=== PATIENT | male | born 1980 | race American Indian/Alaskan Native ===

== ENCOUNTER 2016-10-04 14:41 | Inpatient (IN) | payer OTHER ==
--- NOTE | 2016-10-04 16:14 | Emergency Department Report ---
Addendum entered and electronically signed by YUSUF WILDE PA 10/04/16 19:10 : Blank Doc - Documentation Documentation: Charged nurse notified the patient's pulse ox is 95% and needs supplemental oxygen. I also informed her of that patient will needs to come back to main ED immediately. Patient remained short of breath after respiratory treatment. Albuterol nebulizer ordered and CT angiogram of the chest ordered. Patient notified as additional treatment plan. O2 sat 97% on 2 L of oxygen. Original Note: Chief Complaint: Dyspnea/Respdistress Stated Complaint: ASTHMA/VOMITING/SOB/CHILLS Time Seen by Provider: 10/04/16 16:12 - HPI History of Present Illness: Patient here reports difficulty breathing and was diagnosed with pneumonia in . He said he was diagnosed at [facility]. He reports that he is having fever and chills. Patient is a positive smoker. Patient reports that he has asthma and he uses albuterol nebulizer and inhaler. O2 sat is coughing and is having some tightness in his chest that he usually gets with his asthma but he feels like he has pneumonia. Patient reports nausea. - ROS Review of Systems: All systems are negative unless stated in HPI above. - Exam Vital Signs: Vital Signs 10/04/16 15:12 Temperature 99.0 F Pulse Rate 124 H Respiratory 24 Rate Blood Pressure 139/80 O2 Sat by Pulse 96 Oximetry Physical Exam: General: This is a 35-year-old male well-nourished well-developed in no acute distress. Lungs: Dry cough, mild increased work of breathing. No wheezing. CV: Tachycardic at 124, regular rhythm. S1-S2 MSE screening note: Focused history and physical exam performed. Due to findings the following was ordered:See [facility] ED Medical Decision Making - Medical Decision Making Medical decision making: Patient seen by provider in triage area. Appropriate protocol activated and patient to main ED to be seen by physician. ED Disposition for MSE Condition: Stable
[2016-10-04] MEDS ORDERED: XOPENEX IH ONE ×2 (16:15→21:48)
[2016-10-04] MEDS: ATROVENT IH ONE ×2 (16:28→19:44)
[2016-10-04 16:38] LABS: Basophils % (Auto) 0.4 % (0.0-1.8); Eosinophils % (Auto) 0.5 % (0.0-4.3); Hematocrit 46.4 % (35.5-45.6); Hemoglobin 15.6 gm/dl (11.8-15.2); Mean Corpuscular HGB Conc 34 % (32-34); Mean Corpuscular Hemoglobin 27 pg (28-32); Mean Corpuscular Volume 81 fl (84-94); Platelet Count 215 K/mm3 (140-440); Red Blood Count 5.75 M/mm3 (3.65-5.03); Red Cell Distribution Width 14.8 % (13.2-15.2); White Blood Count 12.3 K/mm3 (4.5-11.0)
[2016-10-04 16:58] LABS: Blood Urea Nitrogen 18 mg/dL (9-20); Calcium 9.2 mg/dL (8.4-10.2); Carbon Dioxide 23 mmol/L (22-30); Chloride 99.2 mmol/L (98-107); Glucose 93 mg/dL (75-100); Potassium 4.3 mmol/L (3.6-5.0); Sodium 137 mmol/L (137-145)
[2016-10-04 17:19] LABS: Anion Gap 19 mmol/L
[2016-10-04] MEDS ORDERED: PROVENTIL IH ONE ×2 (19:06→19:37)
[2016-10-04 19:33] LABS: INR 1.05 (0.87-1.13)
[2016-10-04] MEDS ORDERED: NACL ONE (19:35)
[2016-10-04] MEDS ORDERED: ATROVENT IH ONE ×2 (19:37)
[2016-10-04 19:41] LABS: Creatine Kinase MB 1.3 ng/mL (0.0-4.0)
[2016-10-04] MEDS ORDERED: MAGNESIUM SULFATE 2GM/50ML 50 ML IV ONE (19:41)
--- NOTE | 2016-10-04 19:42 | Emergency Department Report ---
HPI - General Chief Complaint: Dyspnea/Respdistress Time Seen by Provider: 10/04/16 16:12 - HPI HPI: Room 22 The patient is a 35-year-old male presenting with a chief complaint of chest pain and shortness of breath. The patient states yesterday he developed symptoms similar to his previous bout of pneumonia which included anterior chest pain that feels as though something is staying on his chest associated with shortness of breath and a cough productive of green sputum. Patient does admit to nausea vomiting. Patient gives his pain a score of 6/10. The patient denies any recent flights/car trips Location: Chest Duration: Constant since yesterday Quality: Pressure Severity: 6/10 Modifying factors: [see above] Context: [see above] Mode of transportation: [not driving] ED Past Medical Hx - Past Medical History Previous Medical History?: No Hx Asthma: Yes - Surgical History Past Surgical History?: Yes Additional Surgical History: Hernia repair - Family History Family history: no significant - Social History Smoking Status: Current Every Day Smoker Substance Use Type: Alcohol (occasional) - Medications Home Medications: Home Medications Medication Instructions Recorded Confirmed Last Taken Type ALBUTEROL Inhaler 2 puff IH Q4H 07/08/16 07/08/16 Unknown History ED Review of Systems ROS: Stated complaint: ASTHMA/VOMITING/SOB/CHILLS Other details as noted in HPI Comment: All other systems reviewed and negative Constitutional: denies: chills, fever Eyes: denies: eye pain, eye discharge, vision change ENT: denies: ear pain, throat pain Respiratory: cough, shortness of breath, wheezing Cardiovascular: denies: palpitations Endocrine: no symptoms reported Gastrointestinal: nausea, vomiting Genitourinary: denies: urgency, dysuria Musculoskeletal: denies: back pain, joint swelling, arthralgia Skin: denies: rash, lesions Neurological: denies: headache, weakness, paresthesias Psychiatric: denies: anxiety, depression Hematological/Lymphatic: denies: easy bleeding, easy bruising Physical Exam - Physical Exam Vital Signs: Vital Signs 10/04/16 15:12 Temperature 99.0 F Pulse Rate 124 H Respiratory 24 Rate Blood Pressure 139/80 O2 Sat by Pulse 96 Oximetry Physical Exam: GENERAL: The patient is well-developed well-nourished male lying on stretcher appearing in mild discomfort. [] HEENT: Normocephalic. Atraumatic. Extraocular motions are intact. Patient has moist mucous membranes. NECK: Supple. Trachea midline CHEST/LUNGS: Diminished breath sounds throughout. HEART/CARDIOVASCULAR: Regular. There is tachycardia. There is no gallop rub or murmur. ABDOMEN: Abdomen is soft, nontender. Patient has normal bowel sounds. There is no abdominal distention. SKIN: There is no rash. There is no edema. There is no diaphoresis. NEURO: The patient is awake, alert, and oriented. The patient is cooperative. The patient has normal speech MUSCULOSKELETAL: There is no evidence of acute injury. ED Course Vital Signs 10/04/16 15:12 Temperature 99.0 F Pulse Rate 124 H Respiratory 24 Rate Blood Pressure 139/80 O2 Sat by Pulse 96 Oximetry ED Medical Decision Making - Lab Data Result diagrams: 10/04/16 16:27 10/04/16 16:27 Laboratory Tests 10/04/16 10/04/16 10/04/16 16:27 16:27 16:27 WBC 12.3 H RBC 5.75 H Hgb 15.6 H Hct 46.4 H MCV 81 L MCH 27 L MCHC 34 RDW 14.8 Plt Count 215 Lymph % (Auto) 3.6 L Crawford % (Auto) 12.3 H Eos % (Auto) 0.5 Baso % (Auto) 0.4 Lymph # 0.4 L Crawford # 1.5 H Eos # 0.1 Baso # 0.1 Seg Neutrophils % 83.2 H Seg Neutrophils # 10.2 H PT INR APTT Sodium 137 Potassium 4.3 Chloride 99.2 Carbon Dioxide 23 Anion Gap 19 BUN 18 Creatinine 1.5 Estimated GFR > 60 BUN/Creatinine Ratio 12.00 Glucose 93 Lactic Acid 1.5 Calcium 9.2 Total Creatine Kinase CK-MB (CK-2) CK-MB (CK-2) Rel Index Troponin T NT-Pro-B Natriuret Pep 10/04/16 10/04/16 19:10 19:10 WBC RBC Hgb Hct MCV MCH MCHC RDW Plt Count Lymph % (Auto) Crawford % (Auto) Eos % (Auto) Baso % (Auto) Lymph # Crawford # Eos # Baso # Seg Neutrophils % Seg Neutrophils # PT 13.6 INR 1.05 APTT 35.0 Sodium Potassium Chloride Carbon Dioxide Anion Gap BUN Creatinine Estimated GFR BUN/Creatinine Ratio Glucose Lactic Acid Calcium Total Creatine Kinase 212 H CK-MB (CK-2) 1.3 CK-MB (CK-2) Rel Index 0.6 Troponin T < 0.010 NT-Pro-B Natriuret Pep 5.73 - EKG Data -: EKG Interpreted by Me EKG shows normal: sinus rhythm Rate: normal - EKG Data When compared to previous EKG there are: previous EKG unavailable Interpretation: other (no ischemic changes seen) - Radiology Data Radiology results: report reviewed (CT chest), image reviewed (chest x-ray, CT chest) interpreted by me: Chest x-ray-no focal infiltrates, no pneumothorax CT chest (read by radiologist)-no evidence for pulmonary embolism. Nonspecific noncalcified nodule in the left upper lobe laterally. Given the size, follow- up CT in 1 year is recommended unless the patient is at high risk patient. In the latter instance, follow-up CT in 6 and 12 months is warranted - Differential Diagnosis acute asthma exacerbation, pneumonia, pneumothorax, PE Critical care attestation.: If time is entered above; I have spent that time in minutes in the direct care of this critically ill patient, excluding procedure time. ED Disposition Clinical Impression: Shortness of breath, Acute asthma exacerbation Disposition: OP ADMITTED IP TO THIS HOSP Is pt being admited?: Yes Does the pt Need Aspirin: Yes Condition: Fair Time of Disposition: 21:48 (hospitalist notified)
[2016-10-04 19:43] LABS: Creatine Kinase 212 units/L (55-170)
--- NOTE | 2016-10-04 20:37 | Cat Scan Report ---
FINAL REPORT EXAM: CT ANGIO CHEST HISTORY: SOB TECHNIQUE: Enhanced CT of the chest at 2.5 mm axial intervals following a pulmonary embolism protocol. Coronal and sagittal imaging were also obtained. Contrast: 100 ml of Omnipaque 350 given IV. PRIORS: CXR 10/04/2016 FINDINGS: There is no evidence for pulmonary embolism in the main pulmonary artery, right and left pulmonary arteries or their major distributions. However, CT does not exclude distal pulmonary emboli. There is a nonspecific subpleural 6 mm nodule in the left upper lobe (coronal image 40, axial image 57). Otherwise, the lung parenchyma are expanded and clear with no evidence for parenchymal infiltrates, congestion, or pleural effusion. There is no evidence for mediastinal, hilar, or axillary adenopathy. Cardiovascular structures are within normal limits. Images through the lung bases include the upper abdomen which show no abnormalities of the visualized abdominal viscera. Bony structures demonstrate no focal abnormalities. IMPRESSION: 1. no evidence for pulmonary embolism. 2. nonspecific uncalcified nodule in the left upper lobe laterally. Given the size, follow-up CT in 1 years recommended unless the patient is a high-risk patient (history of smoking or primary neoplasm). In the latter instance, follow-up CT in 6 and 12 months is warranted.
--- NOTE | 2016-10-04 20:47 | XRay Report ---
FINAL REPORT EXAM: XR CHEST ROUTINE 2V HISTORY: Shortness of breath TECHNIQUE: PA and lateral views of the chest PRIORS: CT chest 10/04/2016 FINDINGS: Lines, tubes, and devices: N/A Lungs and pleura: Trachea is normal in position. Lungs are clear of infiltrate, pleural effusion, vascular congestion, or pneumothorax. The tiny 6 mm left upper lobe nodule seen on recent CT is not well-visualized by x-ray. This should be followed with CT. Cardiomediastinal silhouette: Cardiac and mediastinal silhouettes are unremarkable. Other: Bony structures are intact. IMPRESSION: No acute cardiopulmonary process seen.
--- NOTE | 2016-10-04 21:50 | History and Physical Report ---
History of Present Illness Chief complaint: shortness of breath History of present illness: 35 YO Male with Asthma, Nicotine Dependence presents to ED for evaluation. Pt states that he experienced shortness of breath over the past day. The patient states symptoms began yesterday after smoking cigarettes. Pt states that symptoms are accompanied with dry cough, productive of green sputum, and soreness in his chest after coughing. Pt denies fever, chills, CP, palpitations , NVD, recent ill contacts. Past History Past Medical History: other (asthma) Past Surgical History: hernia repair Social history: single, smoking. denies: alcohol abuse, prescription drug abuse Family history: hypertension Medications and Allergies Allergies Allergy/AdvReac Type Severity Reaction Status Date / Time No Known Allergies Allergy Unverified 07/08/16 00:25 Home Medications Medication Instructions Recorded Confirmed Last Taken Type ALBUTEROL Inhaler 2 puff IH Q4H PRN 07/08/16 10/04/16 1 Day Ago History 2 Review of Systems All systems: negative Respiratory: cough, shortness of breath Exam - Constitutional Vitals: Temp Pulse Resp BP Pulse Ox 99.9 F H 121 H 16 142/79 100 10/04/16 19:15 10/04/16 20:56 10/04/16 20:56 10/04/16 20:56 10/04/16 20:56 General appearance: Present: no acute distress, well-nourished - EENT Eyes: Present: PERRL ENT: hearing intact, clear oral mucosa - Neck Neck: Present: supple, normal ROM - Respiratory Respiratory effort: normal Respiratory: bilateral: CTA - Cardiovascular Heart Sounds: Present: S1 & S2. Absent: rub, click - Extremities Extremities: pulses symmetrical, No edema Peripheral Pulses: within normal limits - Abdominal General gastrointestinal: Present: soft, non-tender, non-distended, normal bowel sounds Male genitourinary: Present: normal - Integumentary Integumentary: Present: clear, warm, dry - Musculoskeletal Musculoskeletal: gait normal, strength equal bilaterally - Psychiatric Psychiatric: appropriate mood/affect, intact judgment & insight - Neurologic Neurologic: CNII-XII intact, moves all extremities Results - Labs CBC & Chem 7: 10/05/16 05:31 10/04/16 16:27 Labs: Abnormal lab results 10/04/16 10/04/16 Range/Units 16:27 19:10 WBC 12.3 H (4.5-11.0) K/mm3 RBC 5.75 H (3.65-5.03) M/mm3 Hgb 15.6 H (11.8-15.2) gm/dl Hct 46.4 H (35.5-45.6) % MCV 81 L (84-94) fl MCH 27 L (28-32) pg Lymph % (Auto) 3.6 L (13.4-35.0) % [facility] % (Auto) 12.3 H (0.0-7.3) % Lymph # 0.4 L (1.2-5.4) K/mm3 [facility] [place] # 1.5 H (0.0-0.8) K/mm3 Seg Neutrophils % 83.2 H (40.0-70.0) % Seg Neutrophils # 10.2 H (1.8-7.7) K/mm3 Total Creatine Kinase 212 H (55-170) units/L Assessment and Plan - Patient Problems (1) Acute asthma exacerbation Current Visit: Yes Status: Acute Plan to address problem: Asthma Exacerbation Protocol: Iv abx, steroids, nebulizer, supplemental oxygen, education regarding asthma triggers. (2) Nicotine dependence Current Visit: Yes Status: Acute Plan to address problem: Pt counseled (3) DVT prophylaxis Current Visit: Yes Status: Acute
[2016-10-04] MEDS ORDERED: TYLENOL PO PRN (21:51)
[2016-10-04] MEDS ORDERED: ZITHROMAX 500 MG in NACL 0.9% 250ML 250 ML IV ONE (21:52)
[2016-10-04] MEDS ORDERED: DUONEB 0.5 MG-3 MG/3 ML SOLN IH PRN (21:53)
[2016-10-04] MEDS ORDERED: NACL 0.9% 1000 ML 1,000 ML ONE (22:25)
[2016-10-05] MEDS: PROVENTIL IH PRN ×2 (05:35→10:17)
[2016-10-05 07:03] LABS: Hematocrit 44.1 % (35.5-45.6); Hemoglobin 14.3 gm/dl (11.8-15.2); Mean Corpuscular HGB Conc 32 % (32-34); Mean Corpuscular Hemoglobin 26 pg (28-32); Mean Corpuscular Volume 81 fl (84-94); Platelet Count 212 K/mm3 (140-440); Red Blood Count 5.48 M/mm3 (3.65-5.03); White Blood Count 11.2 K/mm3 (4.5-11.0)
[2016-10-05 09:10] LABS: Anisocytosis 1+; Basophils % (Manual) 0 % (0.0-1.8); Blastocytes % (Manual) 0 %; Eosinophils % (Manual) 0 % (0.0-4.3)
[2016-10-05 09:11] LABS: Diff Status Complete; Platelet Estimate Appe
[2016-10-05] MEDS: DUONEB 0.5 MG-3 MG/3 ML SOLN IH SCH ×3 (14:32→20:03)
[2016-10-05] MEDS: ZITHROMAX PO SCH (16:35)
[2016-10-05] MEDS ORDERED: ATROVENT IH SCH (20:00)
--- NOTE | 2016-10-05 20:09 | Progress Note ---
Assessment and Plan Assessment and plan: 1. Asthma exacerbation Start antibiotic along with IV corticosteroids, inhaled bronchodilators and supplemental oxygen 2. Tobacco use Counseled regarding importance of quitting (10 minutes) 3. Lung nodule Needs repeat CT chest in 6-12 months 4. DVT prophylaxis Lovenox History Interval history: c/o SOB, wheezing, difficulty breathing, chest tightness Hospitalist Physical - Constitutional Vitals: Temp Pulse Resp BP Pulse Ox 99.5 F 118 H 14 119/78 100 10/05/16 14:59 10/05/16 14:59 10/05/16 14:59 10/05/16 14:59 10/05/16 14:59 General appearance: Present: no acute distress, well-nourished - EENT Eyes: Present: PERRL, EOM intact. Absent: scleral icterus, conjunctival injection - Neck Neck: Present: supple, normal ROM. Absent: masses or JVD - Respiratory Respiratory effort: labored Respiratory: bilateral: diminished, wheezing, negative: rales, rhonchi - Cardiovascular Rhythm: other (tachycardic) Heart Sounds: Present: S1 & S2. Absent: systolic murmur - Extremities Extremities: no ischemia - Abdominal General gastrointestinal: soft, non-tender, non-distended, normal bowel sounds - Integumentary Integumentary: Present: warm, dry. Absent: jaundice, rash - Psychiatric Psychiatric: cooperative - Neurologic Neurologic: CNII-XII intact, no focal deficits Results - Labs CBC & Chem 7: 10/05/16 05:31 10/04/16 16:27 Labs: Laboratory Last Values WBC 11.2 K/mm3 (4.5-11.0) H 10/05/16 05:31 RBC 5.48 M/mm3 (3.65-5.03) H 10/05/16 05:31 Hgb 14.3 gm/dl (11.8-15.2) 10/05/16 05:31 Hct 44.1 % (35.5-45.6) 10/05/16 05:31 MCV 81 fl (84-94) L 10/05/16 05:31 MCH 26 pg (28-32) L 10/05/16 05:31 MCHC 32 % (32-34) 10/05/16 05:31 RDW 15.0 % (13.2-15.2) 10/05/16 05:31 Plt Count 212 K/mm3 (140-440) 10/05/16 05:31 Lymph % (Auto) 3.6 % (13.4-35.0) L 10/04/16 16:27 Forrest % (Auto) 12.3 % (0.0-7.3) H 10/04/16 16:27 Eos % (Auto) 0.5 % (0.0-4.3) 10/04/16 16:27 Baso % (Auto) 0.4 % (0.0-1.8) 10/04/16 16:27 Lymph # 0.4 K/mm3 (1.2-5.4) L 10/04/16 16:27 Forrest # 1.5 K/mm3 (0.0-0.8) H 10/04/16 16:27 Eos # 0.1 K/mm3 (0.0-0.4) 10/04/16 16:27 Baso # 0.1 K/mm3 (0.0-0.1) 10/04/16 16:27 Add Manual Diff Complete 10/05/16 05:31 Total Counted 100 10/05/16 05:31 Seg Neutrophils % Business Systems Administrator 10/05/16 05:31 Seg Neuts % (Manual) 68.0 % (40.0-70.0) 10/05/16 05:31 Band Neutrophils % 12.0 % 10/05/16 05:31 Lymphocytes % (Manual) 11.0 % (13.4-35.0) L 10/05/16 05:31 Reactive Lymphs % (Man) 0 % 10/05/16 05:31 Monocytes % (Manual) 9.0 % (0.0-7.3) H 10/05/16 05:31 Eosinophils % (Manual) 0 % (0.0-4.3) 10/05/16 05:31 Basophils % (Manual) 0 % (0.0-1.8) 10/05/16 05:31 Metamyelocytes % 0 % 10/05/16 05:31 Myelocytes % 0 % 10/05/16 05:31 Promyelocytes % 0 % 10/05/16 05:31 Blast Cells % 0 % 10/05/16 05:31 Nucleated RBC % Not Reportable 10/05/16 05:31 Seg Neutrophils # 10.2 K/mm3 (1.8-7.7) H 10/04/16 16:27 Seg Neutrophils # Man 7.6 K/mm3 (1.8-7.7) 10/05/16 05:31 Band Neutrophils # 1.3 K/mm3 10/05/16 05:31 Lymphocytes # (Manual) 1.2 K/mm3 (1.2-5.4) 10/05/16 05:31 Abs React Lymphs (Man) 0.0 K/mm3 10/05/16 05:31 Monocytes # (Manual) 1.0 K/mm3 (0.0-0.8) H 10/05/16 05:31 Eosinophils # (Manual) 0.0 K/mm3 (0.0-0.4) 10/05/16 05:31 Basophils # (Manual) 0.0 K/mm3 (0.0-0.1) 10/05/16 05:31 Metamyelocytes # 0.0 K/mm3 10/05/16 05:31 Myelocytes # 0.0 K/mm3 10/05/16 05:31 Promyelocytes # 0.0 K/mm3 10/05/16 05:31 Blast Cells # 0.0 K/mm3 10/05/16 05:31 WBC Morphology Not Reportable 10/05/16 05:31 Hypersegmented Neuts Not Reportable 10/05/16 05:31 Hyposegmented Neuts Not Reportable 10/05/16 05:31 Hypogranular Neuts Not Reportable 10/05/16 05:31 Smudge Cells Not Reportable 10/05/16 05:31 Toxic Granulation Not Reportable 10/05/16 05:31 Toxic Vacuolation Not Reportable 10/05/16 05:31 Dohle Bodies Not Reportable 10/05/16 05:31 Pelger-Huet Anomaly Not Reportable 10/05/16 05:31 Juju Rods Not Reportable 10/05/16 05:31 Platelet Estimate Appe 10/05/16 05:31 Clumped Platelets Not Reportable 10/05/16 05:31 Plt Clumps, EDTA Not Reportable 10/05/16 05:31 Large Platelets Not Reportable 10/05/16 05:31 Giant Platelets Not Reportable 10/05/16 05:31 Platelet Satelliting Not Reportable 10/05/16 05:31 Plt Morphology Comment Not Reportable 10/05/16 05:31 RBC Morphology Not Reportable 10/05/16 05:31 Dimorphic RBCs Not Reportable 10/05/16 05:31 Polychromasia Not Reportable 10/05/16 05:31 Hypochromasia Not Reportable 10/05/16 05:31 Poikilocytosis Not Reportable 10/05/16 05:31 Anisocytosis 1+ 10/05/16 05:31 Microcytosis Not Reportable 10/05/16 05:31 Macrocytosis Not Reportable 10/05/16 05:31 Spherocytes Not Reportable 10/05/16 05:31 Pappenheimer Bodies Not Reportable 10/05/16 05:31 Sickle Cells Not Reportable 10/05/16 05:31 Target Cells Not Reportable 10/05/16 05:31 Tear Drop Cells Not Reportable 10/05/16 05:31 Ovalocytes Not Reportable 10/05/16 05:31 Helmet Cells Not Reportable 10/05/16 05:31 [place] Bodies Not Reportable 10/05/16 05:31 [place] Rings Not Reportable 10/05/16 05:31 [place] Cells Not Reportable 10/05/16 05:31 Bite Cells Not Reportable 10/05/16 05:31 Crenated Cell Not Reportable 10/05/16 05:31 Elliptocytes Not Reportable 10/05/16 05:31 Acanthocytes (Spur) Not Reportable 10/05/16 05:31 Rouleaux Not Reportable 10/05/16 05:31 Hemoglobin C Crystals Not Reportable 10/05/16 05:31 Schistocytes Not Reportable 10/05/16 05:31 Malaria parasites Not Reportable 10/05/16 05:31 Drew Bodies Not Reportable 10/05/16 05:31 Hem Pathologist Commnt No 10/05/16 05:31 PT 13.6 Sec. (12.2-14.9) 10/04/16 19:10 INR 1.05 (0.87-1.13) 10/04/16 19:10 APTT 35.0 Sec. (24.2-36.6) 10/04/16 19:10 Sodium 137 mmol/L (137-145) 10/04/16 16:27 Potassium 4.3 mmol/L (3.6-5.0) 10/04/16 16:27 Chloride 99.2 mmol/L (98-107) 10/04/16 16:27 Carbon Dioxide 23 mmol/L (22-30) 10/04/16 16:27 Anion Gap 19 mmol/L 10/04/16 16:27 BUN 18 mg/dL (9-20) 10/04/16 16:27 Creatinine 1.5 mg/dL (0.8-1.5) 10/04/16 16:27 Estimated GFR > 60 ml/min 10/04/16 16:27 BUN/Creatinine Ratio 12.00 % 10/04/16 16:27 Glucose 93 mg/dL (75-100) 10/04/16 16:27 Lactic Acid 1.5 mmol/L (0.7-2.0) 10/04/16 16:27 Calcium 9.2 mg/dL (8.4-10.2) 10/04/16 16:27 Total Creatine Kinase 212 units/L (55-170) H 10/04/16 19:10 CK-MB (CK-2) 1.3 ng/mL (0.0-4.0) 10/04/16 19:10 CK-MB (CK-2) Rel Index 0.6 (0-4) 10/04/16 19:10 Troponin T < 0.010 ng/mL (0.00-0.029) 10/04/16 19:10 NT-Pro-B Natriuret Pep 5.73 pg/mL (0-450) 10/04/16 19:10 - Imaging and Cardiology Chest x-ray: image reviewed (no acute findings) CT scan - chest: report reviewed (no PE, 6 mm subpleural nodule left upper lung)
[2016-10-05] MEDS: LOVENOX SUB-Q SCH (22:47)
--- NOTE | 2016-10-05 23:41 | Admit Criteria Form ---
Admission Criteria Documentation: ASTHMA Clinical Indications for Admission to Inpatient Care (Place 'X' for any and all applicable criteria): Admission is indicated for ANY ONE of the following (1)(2)(3)(4)(5): [ ]I. Absent or markedly diminished breath sounds (silent chest) [ ]II. Oxygen saturation < 92% [ ]III. PaCO2 = / > 42 mm Hg (5.6 kPa) [ ]IV. Peak expiratory flow rate < 40% of predicted or personal best after treatment. [ ]V. Peak expiratory flow rate < 33% of predicted or personal before after treatment [ ]. Change in mental status [ ]VII. Ventilatory support required [ ]VIII. PaO2 < 60 mm Hg (8.0 kPa) [ ]IX. Cyanosis [ ]X. Cardiac dysrhythmia (e.g., bradycardia) [ ]XI. Hemodynamic instability [ ]XII. Radiographic evidence of complication requiring inpatient treatment (e.g., pneumonia, pneumothorax) [ X]XIII. Inpatient admission required rather than observation care (also use Asthma: Observation Care guideline as appropriate) because of ANY ONE of the following: [ X]a) Respiratory finding that is severe or persistent (eg, dyspnea, tachypnea, accessory muscle use) [ ]b) Airflow measurements less than 60% of predicted or personal best that persist (e.g., over 24 hours) or worsen despite treatments [ ]c) Supplemental oxygen or respiratory treatments for over 24 hours that are performable only in acute inpatient setting [ ]d) Other condition, treatment or monitoring requiring inpatient admission. Extended stay beyond goal length of stay may be needed for (26)(27)(28): [ ]a) Severe respiratory failure (23) (29) (30) [ ]b) Secondary causes and complications (25) [ ]c) Status asthmaticus [ ]d) Chronic obstructive asthma [ ]e) Older patients (29) [ ]f) Slow resolution [ ]g) Clinically significant exacerbation of comorbidities (eg, víctor. heart failure, atrial fibrillation) The original [facility] content created by [employer] has been revised. The portions of the content which have been revised are identified through the use of italic text or in bold, and [email or web address] has neither reviewed nor approved the modified material. All other unmodified content is copyright [employer] Please see references footnoted in the original [facility] edition 2016 Admission Criteria Met: Yes
[2016-10-06] MEDS: DUONEB 0.5 MG-3 MG/3 ML SOLN IH SCH ×3 (07:27→20:16)
[2016-10-06] MEDS: ZITHROMAX PO SCH (09:44)
[2016-10-06] MEDS ORDERED: PNEUMOVAX 23 IM ONE (12:00)
[2016-10-06] MEDS ORDERED: FLUARIX QUAD 2016-2017(36 MOS+) IM ONE (12:00)
--- NOTE | 2016-10-06 18:26 | Progress Note ---
Assessment and Plan Assessment and plan: 1. Asthma exacerbation Started on antibiotic along with IV corticosteroids, inhaled bronchodilators and supplemental oxygen No significant improvement Add mucinex as he associated productive cough 2. Tobacco use Counseled regarding importance of quitting (10 minutes) 3. Lung nodule Needs repeat CT chest in 6-12 months 4. DVT prophylaxis Lovenox History Interval history: still c/o SOB and wheezing, associated with productive cough Hospitalist Physical - Constitutional Vitals: Temp Pulse Resp BP Pulse Ox 98.1 F 117 H 20 120/66 94 10/06/16 08:00 10/06/16 13:15 10/06/16 13:15 10/06/16 08:00 10/06/16 09:50 General appearance: Present: no acute distress, well-nourished - EENT Eyes: Present: PERRL, EOM intact. Absent: scleral icterus, conjunctival injection - Neck Neck: Present: supple, normal ROM. Absent: masses or JVD - Respiratory Respiratory effort: normal Respiratory: bilateral: diminished, wheezing, negative: rales - Cardiovascular Rhythm: other (tachycardic) Heart Sounds: Present: S1 & S2. Absent: systolic murmur - Extremities Extremities: no ischemia - Abdominal General gastrointestinal: soft, non-tender, non-distended, normal bowel sounds - Psychiatric Psychiatric: cooperative - Neurologic Neurologic: CNII-XII intact, no focal deficits Results - Labs CBC & Chem 7: 10/05/16 05:31 10/04/16 16:27 Labs: Laboratory Last Values WBC 11.2 K/mm3 (4.5-11.0) H 10/05/16 05:31 RBC 5.48 M/mm3 (3.65-5.03) H 10/05/16 05:31 Hgb 14.3 gm/dl (11.8-15.2) 10/05/16 05:31 Hct 44.1 % (35.5-45.6) 10/05/16 05:31 MCV 81 fl (84-94) L 10/05/16 05:31 MCH 26 pg (28-32) L 10/05/16 05:31 MCHC 32 % (32-34) 10/05/16 05:31 RDW 15.0 % (13.2-15.2) 10/05/16 05:31 Plt Count 212 K/mm3 (140-440) 10/05/16 05:31 Lymph % (Auto) 3.6 % (13.4-35.0) L 10/04/16 16:27 [place] % (Auto) 12.3 % (0.0-7.3) H 10/04/16 16:27 Eos % (Auto) 0.5 % (0.0-4.3) 10/04/16 16:27 Baso % (Auto) 0.4 % (0.0-1.8) 10/04/16 16:27 Lymph # 0.4 K/mm3 (1.2-5.4) L 10/04/16 16:27 [place] # 1.5 K/mm3 (0.0-0.8) H 10/04/16 16:27 Eos # 0.1 K/mm3 (0.0-0.4) 10/04/16 16:27 Baso # 0.1 K/mm3 (0.0-0.1) 10/04/16 16:27 Add Manual Diff Complete 10/05/16 05:31 Total Counted 100 10/05/16 05:31 Seg Neutrophils % Recreational Therapy Technician 10/05/16 05:31 Seg Neuts % (Manual) 68.0 % (40.0-70.0) 10/05/16 05:31 Band Neutrophils % 12.0 % 10/05/16 05:31 Lymphocytes % (Manual) 11.0 % (13.4-35.0) L 10/05/16 05:31 Reactive Lymphs % (Man) 0 % 10/05/16 05:31 Monocytes % (Manual) 9.0 % (0.0-7.3) H 10/05/16 05:31 Eosinophils % (Manual) 0 % (0.0-4.3) 10/05/16 05:31 Basophils % (Manual) 0 % (0.0-1.8) 10/05/16 05:31 Metamyelocytes % 0 % 10/05/16 05:31 Myelocytes % 0 % 10/05/16 05:31 Promyelocytes % 0 % 10/05/16 05:31 Blast Cells % 0 % 10/05/16 05:31 Nucleated RBC % Not Reportable 10/05/16 05:31 Seg Neutrophils # 10.2 K/mm3 (1.8-7.7) H 10/04/16 16:27 Seg Neutrophils # Man 7.6 K/mm3 (1.8-7.7) 10/05/16 05:31 Band Neutrophils # 1.3 K/mm3 10/05/16 05:31 Lymphocytes # (Manual) 1.2 K/mm3 (1.2-5.4) 10/05/16 05:31 Abs React Lymphs (Man) 0.0 K/mm3 10/05/16 05:31 Monocytes # (Manual) 1.0 K/mm3 (0.0-0.8) H 10/05/16 05:31 Eosinophils # (Manual) 0.0 K/mm3 (0.0-0.4) 10/05/16 05:31 Basophils # (Manual) 0.0 K/mm3 (0.0-0.1) 10/05/16 05:31 Metamyelocytes # 0.0 K/mm3 10/05/16 05:31 Myelocytes # 0.0 K/mm3 10/05/16 05:31 Promyelocytes # 0.0 K/mm3 10/05/16 05:31 Blast Cells # 0.0 K/mm3 10/05/16 05:31 WBC Morphology Not Reportable 10/05/16 05:31 Hypersegmented Neuts Not Reportable 10/05/16 05:31 Hyposegmented Neuts Not Reportable 10/05/16 05:31 Hypogranular Neuts Not Reportable 10/05/16 05:31 Smudge Cells Not Reportable 10/05/16 05:31 Toxic Granulation Not Reportable 10/05/16 05:31 Toxic Vacuolation Not Reportable 10/05/16 05:31 Dohle Bodies Not Reportable 10/05/16 05:31 Pelger-Huet Anomaly Not Reportable 10/05/16 05:31 [place] Rods Not Reportable 10/05/16 05:31 Platelet Estimate Appe 10/05/16 05:31 Clumped Platelets Not Reportable 10/05/16 05:31 Plt Clumps, EDTA Not Reportable 10/05/16 05:31 Large Platelets Not Reportable 10/05/16 05:31 Giant Platelets Not Reportable 10/05/16 05:31 Platelet Satelliting Not Reportable 10/05/16 05:31 Plt Morphology Comment Not Reportable 10/05/16 05:31 RBC Morphology Not Reportable 10/05/16 05:31 Dimorphic RBCs Not Reportable 10/05/16 05:31 Polychromasia Not Reportable 10/05/16 05:31 Hypochromasia Not Reportable 10/05/16 05:31 Poikilocytosis Not Reportable 10/05/16 05:31 Anisocytosis 1+ 10/05/16 05:31 Microcytosis Not Reportable 10/05/16 05:31 Macrocytosis Not Reportable 10/05/16 05:31 Spherocytes Not Reportable 10/05/16 05:31 Pappenheimer Bodies Not Reportable 10/05/16 05:31 Sickle Cells Not Reportable 10/05/16 05:31 Target Cells Not Reportable 10/05/16 05:31 Tear Drop Cells Not Reportable 10/05/16 05:31 Ovalocytes Not Reportable 10/05/16 05:31 Helmet Cells Not Reportable 10/05/16 05:31 Diana-Sellers Bodies Not Reportable 10/05/16 05:31 [place] Rings Not Reportable 10/05/16 05:31 [place] Manuel Cells Not Reportable 10/05/16 05:31 Bite Cells Not Reportable 10/05/16 05:31 Crenated Cell Not Reportable 10/05/16 05:31 Elliptocytes Not Reportable 10/05/16 05:31 Acanthocytes (Spur) Not Reportable 10/05/16 05:31 Rouleaux Not Reportable 10/05/16 05:31 Hemoglobin C Crystals Not Reportable 10/05/16 05:31 Schistocytes Not Reportable 10/05/16 05:31 Malaria parasites Not Reportable 10/05/16 05:31 Drew Bodies Not Reportable 10/05/16 05:31 Hem Pathologist Commnt No 10/05/16 05:31 PT 13.6 Sec. (12.2-14.9) 10/04/16 19:10 INR 1.05 (0.87-1.13) 10/04/16 19:10 APTT 35.0 Sec. (24.2-36.6) 10/04/16 19:10 Sodium 137 mmol/L (137-145) 10/04/16 16:27 Potassium 4.3 mmol/L (3.6-5.0) 10/04/16 16:27 Chloride 99.2 mmol/L (98-107) 10/04/16 16:27 Carbon Dioxide 23 mmol/L (22-30) 10/04/16 16:27 Anion Gap 19 mmol/L 10/04/16 16:27 BUN 18 mg/dL (9-20) 10/04/16 16:27 Creatinine 1.5 mg/dL (0.8-1.5) 10/04/16 16:27 Estimated GFR > 60 ml/min 10/04/16 16:27 BUN/Creatinine Ratio 12.00 % 10/04/16 16:27 Glucose 93 mg/dL (75-100) 10/04/16 16:27 Lactic Acid 1.5 mmol/L (0.7-2.0) 10/04/16 16:27 Calcium 9.2 mg/dL (8.4-10.2) 10/04/16 16:27 Total Creatine Kinase 212 units/L (55-170) H 10/04/16 19:10 CK-MB (CK-2) 1.3 ng/mL (0.0-4.0) 10/04/16 19:10 CK-MB (CK-2) Rel Index 0.6 (0-4) 10/04/16 19:10 Troponin T < 0.010 ng/mL (0.00-0.029) 10/04/16 19:10 NT-Pro-B Natriuret Pep 5.73 pg/mL (0-450) 10/04/16 19:10
[2016-10-07] MEDS: MUCINEX ER PO SCH ×3 (00:21→22:58)
[2016-10-07] MEDS: LOVENOX SUB-Q SCH ×2 (01:15→22:59)
[2016-10-07] MEDS: DUONEB 0.5 MG-3 MG/3 ML SOLN IH SCH ×3 (09:24→20:16)
[2016-10-07] MEDS ORDERED: PROVENTIL IH PRN (09:30)
[2016-10-07] MEDS: ZITHROMAX PO SCH (10:55)
--- NOTE | 2016-10-07 15:03 | Progress Note ---
Assessment and Plan Assessment and plan: 1. Asthma exacerbation Started on antibiotic along with IV corticosteroids, inhaled bronchodilators and supplemental oxygen Slight improvement, plan to switch corticosteroids to by mouth tomorrow 2. Tobacco use Counseled regarding importance of quitting 3. Lung nodule Needs repeat CT chest in 6-12 months 4. DVT prophylaxis Lovenox History Interval history: slight improvement, feeling better, still wheezing Hospitalist Physical - Constitutional Vitals: Temp Pulse Resp BP Pulse Ox 98.4 F 112 H 16 110/54 96 10/07/16 08:00 10/07/16 14:21 10/07/16 14:21 10/07/16 08:00 10/07/16 09:26 General appearance: Present: no acute distress, well-nourished - EENT Eyes: Present: PERRL, EOM intact. Absent: scleral icterus, conjunctival injection - Neck Neck: Present: supple, normal ROM. Absent: masses or JVD - Respiratory Respiratory effort: normal Respiratory: bilateral: diminished, wheezing (exp wheezes), negative: rales, rhonchi - Cardiovascular Rhythm: regular Heart Sounds: Present: S1 & S2. Absent: systolic murmur - Extremities Extremities: no ischemia - Abdominal General gastrointestinal: soft, non-tender, non-distended, normal bowel sounds - Integumentary Integumentary: Present: warm, dry. Absent: jaundice, rash - Psychiatric Psychiatric: cooperative - Neurologic Neurologic: CNII-XII intact, no focal deficits Results - Labs CBC & Chem 7: 10/05/16 05:31 10/04/16 16:27 Labs: Laboratory Last Values WBC 11.2 K/mm3 (4.5-11.0) H 10/05/16 05:31 RBC 5.48 M/mm3 (3.65-5.03) H 10/05/16 05:31 Hgb 14.3 gm/dl (11.8-15.2) 10/05/16 05:31 Hct 44.1 % (35.5-45.6) 10/05/16 05:31 MCV 81 fl (84-94) L 10/05/16 05:31 MCH 26 pg (28-32) L 10/05/16 05:31 MCHC 32 % (32-34) 10/05/16 05:31 RDW 15.0 % (13.2-15.2) 10/05/16 05:31 Plt Count 212 K/mm3 (140-440) 10/05/16 05:31 Lymph % (Auto) 3.6 % (13.4-35.0) L 10/04/16 16:27 [place] % (Auto) 12.3 % (0.0-7.3) H 10/04/16 16:27 Eos % (Auto) 0.5 % (0.0-4.3) 10/04/16 16:27 Baso % (Auto) 0.4 % (0.0-1.8) 10/04/16 16:27 Lymph # 0.4 K/mm3 (1.2-5.4) L 10/04/16 16:27 [place] # 1.5 K/mm3 (0.0-0.8) H 10/04/16 16:27 Eos # 0.1 K/mm3 (0.0-0.4) 10/04/16 16:27 Baso # 0.1 K/mm3 (0.0-0.1) 10/04/16 16:27 Add Manual Diff Complete 10/05/16 05:31 Total Counted 100 10/05/16 05:31 Seg Neutrophils % Contracts Law Professor 10/05/16 05:31 Seg Neuts % (Manual) 68.0 % (40.0-70.0) 10/05/16 05:31 Band Neutrophils % 12.0 % 10/05/16 05:31 Lymphocytes % (Manual) 11.0 % (13.4-35.0) L 10/05/16 05:31 Reactive Lymphs % (Man) 0 % 10/05/16 05:31 Monocytes % (Manual) 9.0 % (0.0-7.3) H 10/05/16 05:31 Eosinophils % (Manual) 0 % (0.0-4.3) 10/05/16 05:31 Basophils % (Manual) 0 % (0.0-1.8) 10/05/16 05:31 Metamyelocytes % 0 % 10/05/16 05:31 Myelocytes % 0 % 10/05/16 05:31 Promyelocytes % 0 % 10/05/16 05:31 Blast Cells % 0 % 10/05/16 05:31 Nucleated RBC % Not Reportable 10/05/16 05:31 Seg Neutrophils # 10.2 K/mm3 (1.8-7.7) H 10/04/16 16:27 Seg Neutrophils # Man 7.6 K/mm3 (1.8-7.7) 10/05/16 05:31 Band Neutrophils # 1.3 K/mm3 10/05/16 05:31 Lymphocytes # (Manual) 1.2 K/mm3 (1.2-5.4) 10/05/16 05:31 Abs React Lymphs (Man) 0.0 K/mm3 10/05/16 05:31 Monocytes # (Manual) 1.0 K/mm3 (0.0-0.8) H 10/05/16 05:31 Eosinophils # (Manual) 0.0 K/mm3 (0.0-0.4) 10/05/16 05:31 Basophils # (Manual) 0.0 K/mm3 (0.0-0.1) 10/05/16 05:31 Metamyelocytes # 0.0 K/mm3 10/05/16 05:31 Myelocytes # 0.0 K/mm3 10/05/16 05:31 Promyelocytes # 0.0 K/mm3 10/05/16 05:31 Blast Cells # 0.0 K/mm3 10/05/16 05:31 WBC Morphology Not Reportable 10/05/16 05:31 Hypersegmented Neuts Not Reportable 10/05/16 05:31 Hyposegmented Neuts Not Reportable 10/05/16 05:31 Hypogranular Neuts Not Reportable 10/05/16 05:31 Smudge Cells Not Reportable 10/05/16 05:31 Toxic Granulation Not Reportable 10/05/16 05:31 Toxic Vacuolation Not Reportable 10/05/16 05:31 Dohle Bodies Not Reportable 10/05/16 05:31 Pelger-Huet Anomaly Not Reportable 10/05/16 05:31 Juju Rods Not Reportable 10/05/16 05:31 Platelet Estimate Appe 10/05/16 05:31 Clumped Platelets Not Reportable 10/05/16 05:31 Plt Clumps, EDTA Not Reportable 10/05/16 05:31 Large Platelets Not Reportable 10/05/16 05:31 Giant Platelets Not Reportable 10/05/16 05:31 Platelet Satelliting Not Reportable 10/05/16 05:31 Plt Morphology Comment Not Reportable 10/05/16 05:31 RBC Morphology Not Reportable 10/05/16 05:31 Dimorphic RBCs Not Reportable 10/05/16 05:31 Polychromasia Not Reportable 10/05/16 05:31 Hypochromasia Not Reportable 10/05/16 05:31 Poikilocytosis Not Reportable 10/05/16 05:31 Anisocytosis 1+ 10/05/16 05:31 Microcytosis Not Reportable 10/05/16 05:31 Macrocytosis Not Reportable 10/05/16 05:31 Spherocytes Not Reportable 10/05/16 05:31 Pappenheimer Bodies Not Reportable 10/05/16 05:31 Sickle Cells Not Reportable 10/05/16 05:31 Target Cells Not Reportable 10/05/16 05:31 Tear Drop Cells Not Reportable 10/05/16 05:31 Ovalocytes Not Reportable 10/05/16 05:31 Helmet Cells Not Reportable 10/05/16 05:31 Diana-Mccoll Bodies Not Reportable 10/05/16 05:31 [place] Rings Not Reportable 10/05/16 05:31 [place] Cells Not Reportable 10/05/16 05:31 Bite Cells Not Reportable 10/05/16 05:31 Crenated Cell Not Reportable 10/05/16 05:31 Elliptocytes Not Reportable 10/05/16 05:31 Acanthocytes (Spur) Not Reportable 10/05/16 05:31 Rouleaux Not Reportable 10/05/16 05:31 Hemoglobin C Crystals Not Reportable 10/05/16 05:31 Schistocytes Not Reportable 10/05/16 05:31 Malaria parasites Not Reportable 10/05/16 05:31 Drew Bodies Not Reportable 10/05/16 05:31 Hem Pathologist Commnt No 10/05/16 05:31 PT 13.6 Sec. (12.2-14.9) 10/04/16 19:10 INR 1.05 (0.87-1.13) 10/04/16 19:10 APTT 35.0 Sec. (24.2-36.6) 10/04/16 19:10 Sodium 137 mmol/L (137-145) 10/04/16 16:27 Potassium 4.3 mmol/L (3.6-5.0) 10/04/16 16:27 Chloride 99.2 mmol/L (98-107) 10/04/16 16:27 Carbon Dioxide 23 mmol/L (22-30) 10/04/16 16:27 Anion Gap 19 mmol/L 10/04/16 16:27 BUN 18 mg/dL (9-20) 10/04/16 16:27 Creatinine 1.5 mg/dL (0.8-1.5) 10/04/16 16:27 Estimated GFR > 60 ml/min 10/04/16 16:27 BUN/Creatinine Ratio 12.00 % 10/04/16 16:27 Glucose 93 mg/dL (75-100) 10/04/16 16:27 Lactic Acid 1.5 mmol/L (0.7-2.0) 10/04/16 16:27 Calcium 9.2 mg/dL (8.4-10.2) 10/04/16 16:27 Total Creatine Kinase 212 units/L (55-170) H 10/04/16 19:10 CK-MB (CK-2) 1.3 ng/mL (0.0-4.0) 10/04/16 19:10 CK-MB (CK-2) Rel Index 0.6 (0-4) 10/04/16 19:10 Troponin T < 0.010 ng/mL (0.00-0.029) 10/04/16 19:10 NT-Pro-B Natriuret Pep 5.73 pg/mL (0-450) 10/04/16 19:10
[2016-10-08] MEDS: DUONEB 0.5 MG-3 MG/3 ML SOLN IH SCH ×2 (08:27→14:49)
--- NOTE | 2016-10-08 09:30 | Discharge Summary ---
Providers - Providers Date of Admission: 10/04/16 21:51 Date of discharge: 10/08/16 Attending physician: DAVI OLVERA Primary care physician: [employer] Hospitalization Reason for admission: SOB Condition: Good Pertinent studies: CXR CT chest Hospital course: Patient is a 35 yo male, smoker, with asthma who presented to the hospital complaining of worsening shortness of breath. Diagnosed with acute asthma exacerbation and treated accordingly with progressive improvement of symptoms and ischarged in stable condition with PCP follow-up. 1. Asthma exacerbation Started on antibiotic along with IV corticosteroids initialy. then switched to po, inhaled bronchodilators and supplemental oxygen 2. Tobacco use Counseled regarding importance of quitting 3. Lung nodule Needs repeat CT chest in 6-12 months Disposition: DISCHARGED TO HOME OR SELFCARE Time spent for discharge: 35 min Core Measure Documentation - Palliative Care Palliative Care/ Comfort Measures: Not Applicable - Core Measures Any of the following diagnoses?: none Exam - Physical Exam Narrative exam: Patient seen and examined: - Constitutional Vitals: Temp Pulse Resp BP Pulse Ox 98.8 F 68 16 119/59 98 10/08/16 07:40 10/08/16 08:40 10/08/16 08:40 10/08/16 07:40 10/08/16 07:40 General appearance: Present: no acute distress - Neck Neck: Present: supple, normal ROM. Absent: masses or JVD - Respiratory Respiratory effort: normal Respiratory: bilateral: CTA, wheezing (very rare exp wheezes), negative: rales, rhonchi - Cardiovascular Rhythm: regular Heart Sounds: Present: S1 & S2. Absent: systolic murmur - Extremities Extremities: no ischemia - Abdominal General gastrointestinal: Present: soft, non-tender, non-distended, normal bowel sounds - Neurologic Neurologic: CNII-XII intact, no focal deficits Plan Activity: advance as tolerated Diet: low cholesterol, low salt Follow up with: PRIMARY CAREMD [Primary Care Provider] - 7 Days JOSSIE SAUER MD [Staff Physician] - 14 Days Prescriptions: ALBUTEROL Inhaler 2 puff IH Q4H PRN #1 PRN Reason: Wheezing predniSONE [Deltasone] 20 mg PO QDAY #14 tab guaiFENesin ER [Mucinex ER] 600 mg PO BID #10 tablet Azithromycin [Zithromax TAB] 500 mg PO QDAY #6 tablet
[2016-10-08] MEDS: MUCINEX ER PO SCH (12:02)
[2016-10-08] MEDS: ZITHROMAX PO SCH (12:05)
[2016-10-08 12:59] VITALS: BP 123/75
== END 2016-10-08 14:00 | disposition home or self-care (01) | DRG 203 ==
LOC: ED 14:41 → 3A 21:51
PROVIDERS: ADMIT Internal Medicine; ATTEND Internal Medicine
DX: J45.901 Unspecified asthma with (acute) exacerbation (principal); F17.210 Nicotine dependence, cigarettes, uncomplicated; Z98.890 Other specified postprocedural states; Z82.49 Family history of ischemic heart disease and other diseases of the circulatory system
CPT/HCPCS: 36415; 71020; 71275; 80048; 82140; 82550; 82553; 83880; 84484; 85007; 85025; 85610; 85730; 90686; 90732; 93005; 93010; 94640; 96365; 96366; 96367; 96375; 99406; J0456; J1650; J2920; J2930; J3475; J7030; J7050; Q9967

== ENCOUNTER 2022-02-13 19:35 | Emergency (ER) | payer SELFPAY | END 2022-02-13 23:30 | disposition left against medical advice (07) | LOC: ED 19:35 | DX: F19.239 Other psychoactive substance dependence with withdrawal, unspecified (principal); Z53.21 Procedure and treatment not carried out due to patient leaving prior to being seen by health care provider ==